=== PATIENT | female | born 1970 | race Caucasian/White ===

== ENCOUNTER 2020-08-27 08:03 | Outpatient (CLI) | payer BC | END 2020-08-27 08:04 | disposition home or self-care (01) | LOC: CSHMAMMO 08:03 | PROVIDERS: ATTEND Nurse Practitioner Family | DX: Z12.31 Encounter for screening mammogram for malignant neoplasm of breast (principal); Z78.0 Asymptomatic menopausal state | CPT/HCPCS: 77063; 77067; 77080 ==

== ENCOUNTER 2021-09-20 07:37 | Outpatient (CLI) | payer BC | END 2021-09-20 07:38 | disposition home or self-care (01) | LOC: CSHMAMMO 07:37 | PROVIDERS: ATTEND Family Medicine | DX: Z12.31 Encounter for screening mammogram for malignant neoplasm of breast (principal); Z80.3 Family history of malignant neoplasm of breast | CPT/HCPCS: 77063; 77067 ==

== ENCOUNTER 2024-01-06 08:07 | Outpatient (CLI) | payer BC | END 2024-01-06 08:08 | disposition home or self-care (01) | LOC: CSHULT 08:07 | PROVIDERS: ATTEND Family Medicine | DX: R74.8 Abnormal levels of other serum enzymes (principal); K76.0 Fatty (change of) liver, not elsewhere classified | CPT/HCPCS: 76700 ==